=== PATIENT | female | born 1975 | race Hispanic/Latino ===

== ENCOUNTER → 2019-12-13 | Day surgery (SDC) | payer OTHER ==
[~2019-12-13] MED LIST: ACETAMINOPHEN 1000 MG/100 ML IV ONE; ACETAMINOPHEN-1 EAC4 PO; ACETAMINOPHEN/CODEINE 300MG - 30MG TAB ONE; BUPIVACAINE HCL 0.5% INJ 30 ML VIAL INJ ONE; CEFAZOLIN SOD 1 GM/NS 50ML 50 ML IV ONE; DEXAMETHASONE SOD PHOS INJ 4 MG/ML VIAL ONE; FENTANYL CITRATE/PF 100MCG/2 ML INJ ONE; HYDROMORPHONE 1MG/1ML INJ ONE; KETOROLAC TROMETHAMINE 30 MG/ML VIAL ONE; LIDOCAINE HCL 2% LOCAL INJ 5 ML SDV VIAL INJ ONE; MIDAZOLAM HCL 2 MG/2 ML VIAL ONE; ONDANSETRON HCL INJ 2MG/ML 2ML 2 MG/ML VIAL ONE; PROPOFOL IV EMULSION 10 MG/ML 20 ML VIAL ONE; SEVOFLURANE INHAL SOLN 250 ML PEN BTL ONE
--- NOTE | 2019-12-13 08:46 | Operative Report ---
DATE OF PROCEDURE: 12/13/2019 SURGEON: Barak Tolentino MD ULTRA SOUND TECHNICIAN: Brett Lujan PA-C PREOPERATIVE DIAGNOSES: 1. Right ankle medial malleolar fracture. 2. Right ankle posterior malleolar fracture. POSTOPERATIVE DIAGNOSES: 1. Right ankle medial malleolar fracture. 2. Right ankle posterior malleolar fracture. PROCEDURE: Open reduction and internal fixation right ankle (medial only). INDICATIONS: The patient is a 44-year-old lady, who fractured her right ankle. She has a displaced medial malleolar fracture and a nondisplaced posterior malleolar fracture. The findings and options have been discussed. We have recommended open reduction with internal fixation. The risks and benefits of the procedure have been explained. She states she understands and wishes to proceed. PROCEDURE IN DETAIL: The patient was brought to the operating room and placed under general anesthetic. Her right lower extremity was prepped and draped in a sterile manner. A preoperative time-out was performed. The extremity was exsanguinated and a proximal tourniquet was inflated to 300 mmHg. An incision was made over the medial aspect of the ankle. Care was taken to avoid injury to the saphenous nerve and vein. A C-arm image intensifier was used to assist in obtaining a reduction of the medial malleolus. It was noted that the medial stability was severely compromised. There was significant tibiotalar tilt with the fracture unreduced. The fracture fragment was not big enough for 2 screws, but we were able to securely fix it with one partially-threaded cancellous screw that was 35 mm in length. Intraoperative x-rays confirmed anatomic reduction and good positioning of the screw. The wound was irrigated and closed with subcuticular Vicryl, Mastisol, and Steri-Strips. 7 mL of 0.5% Marcaine were injected into the tissue surrounding the incision. A sterile bandage and a well-padded splint were applied. There was no blood loss and all needle and sponge counts were correct. Barak Tolentino MD DR/GREG /[id number]
[2019-12-13 09:35] VITALS: BP 117/73
== END | disposition home or self-care (01) ==
LOC: OR 05:33
PROVIDERS: ATTEND Specialist
DX: S82.51XA Displaced fracture of medial malleolus of right tibia, initial encounter for closed fracture (principal); E78.5 Hyperlipidemia, unspecified; W10.8XXA Fall (on) (from) other stairs and steps, initial encounter; Y92.008 Other place in unspecified non-institutional (private) residence as the place of occurrence of the external cause; Z01.812 Encounter for preprocedural laboratory examination; Z11.59 Encounter for screening for other viral diseases
CPT/HCPCS: 27766; 76000; 87635; C1713; J0131; J0690; J1100; J1170; J1885; J2001; J2250; J2405; J2704; J3010